=== PATIENT | female | born 2000 | race African-American/Black ===

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

== ENCOUNTER 2018-03-04 11:39 | Emergency (ER) | payer SELFPAY ==
[2018-03-04 11:45] VITALS: BP 121/74
--- NOTE | 2018-03-04 12:21 | ER Document Report ---
HPI - HPI Patient complains to provider of: Right upper back tenderness Onset: Other - 4 days Onset/Duration: Persistent Quality of pain: Achy Pain Level: 3 Context: Patient presents complaining of her right side back discomfort for the past 4 days. Patient denies any fever or sore throat symptoms. Associated Symptoms: denies: Fever, Headache, Sore throat Exacerbated by: Movement Relieved by: Denies Similar symptoms previously: No Recently seen / treated by doctor: No - ROS ROS below otherwise negative: Yes Systems Reviewed and Negative: Yes All other systems reviewed and negative - CONSTITUTIONAL Constitutional: DENIES: Fever, Chills - EENT EENT: DENIES: Sore Throat, Eye problems - NEURO Neurology: DENIES: Headache, Weakness - CARDIOVASCULAR Cardiovascular: DENIES: Chest pain - URINARY Urinary: DENIES: Dysuria, Urgency, Frequency - REPRODUCTIVE Reproductive: DENIES: : - MUSCULOSKELETAL Musculoskeletal: REPORTS: Back Pain. 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 IN LAST 30 DAYS: No - HEENT HEENT: Atraumatic, Normal ENT Exam, Normocephalic - NECK Neck: Normal Inspection, Supple. negative: Lymphadenopathy-Left, Lymphadenopathy-Right Notes: No meningismus - RESPIRATORY Respiratory: Breath Sounds Normal, No Respiratory Distress - CARDIOVASCULAR Cardiovascular: Regular Rate, Regular Rhythm - BACK Back: Abnormal Inspection - Right trapezius muscle tenderness with spasm - MUSCULOSKELETAL/EXTREMETIES Musculoskeletal/Extremeties: RICHA JOSHI - NEURO Level of Consciousness: Awake, Alert, Appropriate Motor/Sensory: No Motor Deficit - DERM Integumentary: Warm, Dry, No Rash Course - Vital Signs Vital signs: Temp Pulse Resp BP Pulse Ox 98.8 F 77 18 121/74 100 03/04/18 11:43 03/04/18 11:43 03/04/18 11:43 03/04/18 11:43 03/04/18 11:43 Discharge - Discharge Clinical Impression: Strain of right trapezius muscle Qualifiers: Encounter type: initial encounter Qualified Code(s): S46.811A - Strain of other muscles, fascia and tendons at shoulder and upper arm level, right arm, initial encounter Condition: Stable Disposition: HOME, SELF-CARE Instructions: Muscle Relaxers ([facility]), Muscle Strain ([facility]), Warm Packs ([facility]) Additional Instructions: Return immediately for any new or worsening symptoms Followup with your primary care provider, call tomorrow to make a followup appointment Prescriptions: Cyclobenzaprine HCl [Flexeril 10 Mg Tablet] 10 mg PO TID #15 tablet Naproxen [Naprosyn 250 Nmg Tablet] 1 tab PO BID #14 tablet Forms: Return to Work Referrals: CAN WEEKS PA-C [Primary Care Provider] - Follow up as needed
== END 2018-03-04 12:28 | disposition home or self-care (01) ==
LOC: ER 11:39
DX: S29.012A Strain of muscle and tendon of back wall of thorax, initial encounter (principal); X58.XXXA Exposure to other specified factors, initial encounter
CPT/HCPCS: 99283

== ENCOUNTER 2018-07-08 11:52 | Emergency (ER) | payer SELFPAY ==
[2018-07-08 12:05] VITALS: BP 124/74
[2018-07-08] MEDS ORDERED: DEXAMETHASONE CONC 1 MG/ML SOLN PO ONE (12:34)
--- NOTE | 2018-07-08 12:35 | ER Document Report ---
ED General - General Chief Complaint: Sore Throat Stated Complaint: THROAT PAIN Time Seen by Provider: 07/08/18 12:19 Notes: Patient is a 17-year-old female that presents to the emergency department for chief complaint of sore throat. Patient states that she has been having sinus congestion and sore throat since this past Sunday, she is been taking over-the- counter medications such as NyQuil with some relief of her pain, but things persisted so she decided come to the ED. She denies any sick contacts. Denies having any fevers, chills, night sweats, chest pain, shortness of breath, difficulty breathing, nausea, vomiting or abdominal pain. Past Medical History: Chronic sinusitis Past Surgical History: Denies surgical history Social History: Denies tobacco, alcohol or illicit drug use. Family History: Reviewed and noncontributory for presenting illness Allergies: Reviewed, see documented allergy list. REVIEW OF SYSTEMS: Other than noted above, the 12 point review of systems was reviewed with the patient and were negative, all pertinent findings are included in the HPI. PHYSICAL EXAMINATION: Vital signs reviewed, nursing noted reviewed. GENERAL: Well-appearing, well-nourished and in no acute distress. HEAD: Atraumatic, normocephalic. EYES: Eyes appear normal, extraocular movements intact, sclera anicteric, conjunctiva are normal. ENT: nares patent, oropharynx clear without exudates. Moist mucous membranes. mild bilateral nasal turbinate injection, TMs appear normal bilaterally. NECK: Normal range of motion, supple without lymphadenopathy LUNGS: Breath sounds clear to auscultation bilaterally and equal. No wheezes rales or rhonchi. HEART: Regular rate and rhythm without murmurs ABDOMEN: Soft, nontender, normoactive bowel sounds. No rebound, guarding, or rigidity. No masses appreciated. EXTREMITIES: Nontender, good range of motion, no pitting or edema. NEUROLOGICAL: No focal neurological deficits. Moves all extremities spontaneously Motor and sensory grossly intact on exam. PSYCH: Normal mood, normal affect. SKIN: Warm, Dry, normal turgor, no rashes or lesions noted on exposed skin TRAVEL OUTSIDE OF THE [place] IN LAST 30 DAYS: No - Related Data Allergies/Adverse Reactions: No Known Allergies Allergy (Verified 07/08/18 11:52) Past Medical History - Social History Smoking Status: Never Smoker Chew tobacco use (# tins/day): No Frequency of alcohol use: None Drug Abuse: None Family History: None Patient has suicidal ideation: No Patient has homicidal ideation: No Renal/ Medical History: Denies: Hx Peritoneal Dialysis - Immunizations Immunizations up to date: Yes Physical Exam - Vital signs Vitals: Temp Pulse Resp BP Pulse Ox 98.3 F 83 14 124/74 100 07/08/18 12:05 07/08/18 12:05 07/08/18 12:05 07/08/18 12:05 07/08/18 12:05 Course - Re-evaluation Re-evalutation: Patient seen and examined vital signs reviewed. Patient was evaluated and treated as appropriate for the patient's presenting symptoms and complaint, with consideration of any critical or life threatening conditions that may be associated with their obtained history and exam as noted above. Patient was treated with Decadron 10 mg p.o., rapid strep antigen testing was negative, sent for culture The patient was re-evaluated and was stable Evaluation was most consistent with acute pharyngitis Plan of care was discussed with the patient at this point, after careful consideration I feel that that patient can be discharged from the emergency department, the patient was educated treatments and reasons to return to the emergency department based on their presumed diagnosis as noted above, they were advised to followup with a primary care physician in 2-3 days. Patient was agreeable to plan of care. *Note is created using voice recognition software and may contain spelling, syntax or grammatical errors. Laboratory 07/08/18 12:25 Group A Strep Rapid NEGATIVE - Vital Signs Vital signs: Temp Pulse Resp BP Pulse Ox 98.3 F 83 14 124/74 100 07/08/18 12:05 07/08/18 12:05 07/08/18 12:05 07/08/18 12:05 07/08/18 12:05 Discharge - Discharge Clinical Impression: Acute pharyngitis Qualifiers: Pharyngitis/tonsillitis etiology: unspecified etiology Qualified Code(s): J02.9 - Acute pharyngitis, unspecified Condition: Stable Disposition: HOME, SELF-CARE Instructions: Sore Throat ([facility]) Additional Instructions: Please return to the emergency department if you have any worsening, or concern of your symptoms. Please return to the emergency department if you develop chest pain, difficulty breathing, severe abdominal pain, or ongoing vomiting. Please follow-up with your primary care physician in 2-3 days and any other recommended physicians. If prescribed, take all medications as directed. If you have any questions or concerns do not hesitate to return the emergency department for evaluation. Forms: Return to Work Referrals: CAN WEEKS PA-C [Primary Care Provider] - Follow up in 3-5 days
== END 2018-07-08 13:22 | disposition home or self-care (01) ==
LOC: ER 11:52
DX: J02.9 Acute pharyngitis, unspecified (principal); R09.81 Nasal congestion
CPT/HCPCS: 99283; 87070; 87880; J8540

== ENCOUNTER 2018-07-26 20:11 | Emergency (ER) | payer SELFPAY ==
[2018-07-27] MEDS ORDERED: ONDANSETRON 4 MG TAB.RAPDIS PO ONE (00:08)
[2018-07-27] MEDS ORDERED: IBUPROFEN 600 MG TABLET PO ONE (00:08)
[2018-07-27] MEDS ORDERED: ACETAMINOPHEN 325 MG TABLET PO ONE (00:08)
[2018-07-27 00:52] LABS: A TYPE INFLUENZA AG NEGATIVE (NEGATIVE); B INFLUENZA AG NEGATIVE (NEGATIVE)
--- NOTE | 2018-07-27 01:29 | ER Document Report ---
ED General - General Chief Complaint: Cold Symptoms Stated Complaint: HEADACHE,FEVER Time Seen by Provider: 07/27/18 00:07 Notes: Patient is a 17-year-old female with a past medical history of migraine headaches, presents complaining of a right-sided headache that has been ongoing for the past 24 hours as well as 3 days of nasal congestion, sore throat, nonproductive cough and body aches. Describes a right-sided headache as being a throbbing, aching, constant headache similar to when she has had migraines in the past. She states that she ran out of her migraine medicine so has been unable to take anything since onset. Notes associated nausea and vomiting. She has not had fever. No neck pain. No confusion. Multiple sick contacts with similar symptoms. She has not seen her doctor regarding today's concerns. Denies any focal weakness or numbness. Nothing improves or worsens her symptoms. TRAVEL OUTSIDE OF THE [place] IN LAST 30 DAYS: No - Related Data Allergies/Adverse Reactions: No Known Allergies Allergy (Verified 07/08/18 11:52) Past Medical History - General Information source: Patient - Social History Smoking Status: Never Smoker Chew tobacco use (# tins/day): No Frequency of alcohol use: None Drug Abuse: None Lives with: Parents Family History: Reviewed & Not Pertinent Patient has suicidal ideation: No Patient has homicidal ideation: No Renal/ Medical History: Denies: Hx Peritoneal Dialysis - Immunizations Immunizations up to date: Yes Review of Systems - Review of Systems Notes: Constitutional: Negative for fever. HENT: Positive for sore throat. Eyes: Negative for visual changes. Cardiovascular: Negative for chest pain. Respiratory: Negative for shortness of breath. Gastrointestinal: Negative for abdominal pain, positive for nausea and vomiting Genitourinary: Negative for dysuria. Musculoskeletal: Negative for back pain. Skin: Negative for rash. Neurological: Positive headache 10 point ROS negative except as marked above and in HPI. Physical Exam - Vital signs Vitals: Temp Pulse BP Pulse Ox 98.9 F 111 H 131/77 H 99 07/26/18 20:53 07/26/18 20:53 07/26/18 20:53 07/26/18 20:53 Interpretation: Tachycardic Notes: PHYSICAL EXAMINATION: GENERAL: Well-appearing, well-nourished and in no acute distress. HEAD: Atraumatic, normocephalic. EYES: Pupils equal round and reactive to light, extraocular movements intact, sclera anicteric, conjunctiva are normal. ENT: nares patent, oropharynx clear without exudates. Moist mucous membranes. NECK: Normal range of motion, supple without lymphadenopathy LUNGS: Breath sounds clear to auscultation bilaterally and equal. No wheezes rales or rhonchi. HEART: Regular rate and rhythm without murmurs ABDOMEN: Soft, nontender, normoactive bowel sounds. No guarding, no rebound. No masses appreciated. EXTREMITIES: Normal range of motion, no pitting or edema. No cyanosis. NEUROLOGICAL: Face symmetric. Tongue protrudes midline. Extraocular motions intact. Pupils are 2 mm and equally reactive. Normal speech, normal gait. 5 out of 5 strength in both the distal and proximal upper and lower extremities bilaterally. Sensation is grossly intact throughout. Finger to nose testing normal. Pronator drift normal. PSYCH: Normal mood, normal affect. SKIN: Warm, Dry, normal turgor, no rashes or lesions noted. Course - Re-evaluation Re-evalutation: 07/27/18 01:27 Presentation is most consistent with a viral upper respiratory infection. Patient is overall well appearance, vitals within normal limits, well-hydrated. Although patient does complain of a mild sinus type headache overlying the right maxillary sinus and forehead, she states that this is quite typical for headaches that she has had in the past and has had resolution after receiving ibuprofen and Tylenol p.o. She denies neck pain, and has no evidence of meningismus on examination. Lungs are clear bilaterally. No evidence of respiratory distress. Based on clinical exam and history, I do not suspect an acute pneumonia, meningitis, strep pharyngitis, or an acute encephalitis. Strep and flu testing are both negative. No further laboratory or imaging testing is indicated at this time. I have also refilled some of patient's chronic home medication for her and follow request. At this time will discharge with return precautions and follow-up recommendations. Verbal discharge instructions given a the bedside and opportunity for questions given. Medication warnings reviewed. Patient is in agreement with this plan and has verbalized understanding of return precautions and the need for primary care follow-up in the next 24-72 hours. - Vital Signs Vital signs: Temp Pulse Resp BP Pulse Ox 99.1 F 92 H 16 125/69 99 07/27/18 01:46 07/27/18 01:46 07/27/18 01:46 07/27/18 01:46 07/27/18 01:46 Discharge - Discharge Clinical Impression: Viral upper respiratory infection Headache Qualifiers: Headache type: tension-type Headache chronicity pattern: acute headache Intractability: not intractable Qualified Code(s): G44.209 - Tension-type headache, unspecified, not intractable Condition: Good Disposition: HOME, SELF-CARE Additional Instructions: Your symptoms are most likely due to a viral infection it should resolve over the next 7-14 days. You should take [id number] guanfacine per bottle instructions to help thin the mucus. For nasal congestion: I would recommend that you get [id number] oxymetazoline also known is afrin. Use only per bottle instructions and be sure to never use this for more than 3 days if you can develop severe rebound congestion. You may also use tylenol or ibuprofen as needed for aches and thorat discomfort. Please be sure to drink plenty of fluids and get rest. Return to the emergency department he began having difficulty breathing, chest pain, persistent vomiting, or any other symptoms that are concerning to you. You have been seen in the Emergency Department (ED) for a headache. Please use Tylenol (acetaminophen) or Motrin (ibuprofen) as needed for symptoms, but only as written on the box. As we have discussed, please follow up with your primary care doctor as soon as possible regarding today's ED visit and your headache symptoms. Call your doctor or return to the ED if you have a worsening headache, sudden and severe headache, confusion, slurred speech, facial droop, weakness or numbness in any arm or leg, extreme fatigue, or other symptoms that concern you. Prescriptions: Naproxen 500 mg PO BID PRN #30 tablet PRN Reason: Nortriptyline HCl [Pamelor] 25 mg PO DAILY PRN #30 capsule PRN Reason: Referrals: CAN WEEKS PA-C [Primary Care Provider] - Follow up as needed
[2018-07-27 01:50] VITALS: BP 125/69
== END 2018-07-27 01:51 | disposition home or self-care (01) ==
LOC: ER 20:11
DX: G44.209 Tension-type headache, unspecified, not intractable (principal); J06.9 Acute upper respiratory infection, unspecified; B97.89 Other viral agents as the cause of diseases classified elsewhere; J02.9 Acute pharyngitis, unspecified; R09.81 Nasal congestion; R05 Cough; R11.2 Nausea with vomiting, unspecified
CPT/HCPCS: 87070; 87804; 87880; 99283

== ENCOUNTER 2018-10-28 10:53 | Emergency (ER) | payer SELFPAY ==
[2018-10-28 11:14] VITALS: BP 127/57
--- NOTE | 2018-10-28 12:48 | ER Document Report ---
ED Extremity Problem, Upper - General Chief Complaint: Arm Pain Stated Complaint: ARM PAIN Time Seen by Provider: 10/28/18 12:35 Primary Care Provider: [facility] [Provider Group] - Follow up as needed CAN WEEKS PA-C [Primary Care Provider] - Follow up in 3-5 days Mode of Arrival: Ambulatory Information source: Patient Notes: 18-year-old female presented to ED for complaint of right I am pain since Sunday. She states she was roughhousing and had some sharp popping sounds in her shoulders. She complains of numbness and tingling to her right arm at the time. She states she did not fall and she has been using her arm since then. Patient is alert oriented respirations regular and unlabored speaking in full sentences sentences. She states she has some muscle relaxers and ibuprofen at home and she has been using those with no relief. Patient states she is unemployed at this time. TRAVEL OUTSIDE OF THE [place] IN LAST 30 DAYS: No - HPI Patient complains to provider of: Right, Arm, Elbow, Shoulder Onset: Other Recent injury: Possibly - ID Where: Home Quality of pain: Sharp Severity of pain: Severe Pain Level: 5 Associated symptoms: None Exacerbated by: Movement Similar symptoms previously: Yes Recently seen / treated by doctor: No - Related Data Allergies/Adverse Reactions: No Known Allergies Allergy (Verified 10/28/18 11:06) Past Medical History - General Information source: Patient - Social History Smoking Status: Never Smoker Chew tobacco use (# tins/day): No Frequency of alcohol use: None Drug Abuse: None Lives with: Friend Family History: Reviewed & Not Pertinent Patient has suicidal ideation: No Patient has homicidal ideation: No - Past Medical History Cardiac Medical History: Reports: None Pulmonary Medical History: Reports: None EENT Medical History: Reports: None Neurological Medical History: Reports: None Endocrine Medical History: Reports: None Renal/ Medical History: Reports: None Malignancy Medical History: Reports: None GI Medical History: Reports: None Musculoskeletal Medical History: Reports None Skin Medical History: Reports None Psychiatric Medical History: Reports: None Traumatic Medical History: Reports: None Infectious Medical History: Reports: None Surgical Hx: Negative Past Surgical History: Reports: None - Immunizations Immunizations up to date: Yes Review of Systems - Review of Systems Constitutional: No symptoms reported EENT: No symptoms reported Cardiovascular: No symptoms reported Respiratory: No symptoms reported Gastrointestinal: No symptoms reported Genitourinary: No symptoms reported Female Genitourinary: No symptoms reported Musculoskeletal: Other - Right arm pain she states from shoulder to elbow with numbness and tingling down the hand Skin: No symptoms reported Hematologic/Lymphatic: No symptoms reported Neurological/Psychological: Numbness, Tingling -: Yes All other systems reviewed and negative Physical Exam - Vital signs Vitals: Temp Pulse Resp BP Pulse Ox 98.4 F 82 16 127/57 H 100 10/28/18 11:11 10/28/18 11:11 10/28/18 11:11 10/28/18 11:11 10/28/18 11:11 Interpretation: Normal - General General appearance: Appears well, Alert - HEENT Head: Normocephalic, Atraumatic Eyes: Normal Pupils: PERRL - Respiratory Respiratory status: No respiratory distress Chest status: Nontender Breath sounds: Normal Chest palpation: Normal - Cardiovascular Rhythm: Regular Heart sounds: Normal auscultation Murmur: No - Abdominal Inspection: Normal Distension: No distension Bowel sounds: Normal Tenderness: Nontender Organomegaly: No organomegaly - Back Back: Normal, Nontender - Extremities General upper extremity: Normal inspection, Nontender, Normal color, Normal ROM, Normal temperature General lower extremity: Normal inspection, Nontender, Normal color, Normal ROM, Normal temperature, Normal weight bearing. No: Karan's sign Shoulder: Tender, Other - Patient has pain with range of motion against resistance. Strength5/5,. No: Abrasion, Deformity, Dislocation, Ecchymosis, Instability, Laceration, Limited ROM Arm: Tender. No: Abrasion, Deformity, Ecchymosis, Instability, Laceration Elbow: Tender, Other - Strength5/5, full range of motion against resistance. No: Abrasion, Deformity, Dislocation, Ecchymosis, Instability, Joint effusion, Laceration, Limited ROM, Swollen bursa Forearm: Normal, Nontender. No: Tender, Abrasion, Deformity, Ecchymosis, I nstability, Laceration Wrist: Normal, Nontender, Other - Full range of motion no limited. No: Abrasion, Axial load of thumb pain, Deformity, Ecchymosis, Instability, Lacerati on, Limited ROM, Navicular tenderness Hand: Normal, Nontender, No evidence of human bite, No evidence of FB. No: Tender, Abrasion, Deformity, Dislocation, Ecchymosis, Instability, Laceration, Nail injury, Swelling - Neurological Neuro grossly intact: Yes Cognition: Normal Orientation: AAOx4 Martha Coma Scale Eye Opening: Spontaneous [place]den Coma Scale Verbal: Oriented Martha Coma Scale Motor: Obeys Commands Lowden Coma Scale Total: 15 Speech: Normal Motor strength normal: LUE, RUE, LLE, RLE Sensory: Normal - Psychological Associated symptoms: Normal affect, Normal mood - Skin Skin Temperature: Warm Skin Moisture: Dry Skin Color: Normal Course - Re-evaluation Re-evalutation: 10/28/18 13:32 Patient has full range of motion against resistance to the shoulder and elbow. She has no point tenderness but states that her shoulder arm and elbow all hurt. She states she has numbness and tingling but is able to differentiate soft touch and pinpoint to the entire arm. She has a 5/5 strength to the shoulder elbow and wrist. I did not see any reason for x-rays at this time. I have informed her she needs to follow-up with orthopedics. - Vital Signs Vital signs: Temp Pulse Resp BP Pulse Ox 98.4 F 82 16 127/57 H 100 10/28/18 11:11 10/28/18 11:11 10/28/18 11:11 10/28/18 11:11 10/28/18 11:11 Discharge - Discharge Clinical Impression: Arm pain Qualifiers: Laterality: right Qualified Code(s): M79.601 - Pain in right arm Condition: Stable Disposition: HOME, SELF-CARE Additional Instructions: Arm Pain, Nonspecific We did not find an obvious cause for your arm pain. There's no sign of blood clot, infection, heart attack, stroke, or other serious disease. Most of the time, this type of pain goes away. If it does, no further evaluation is necessary. If pain continues or keeps coming back, we can do further testing. Possible causes of vague arm pain include muscle or joint inflammation, disc disease in the neck, pressure on the nerves and artery in the chest or armpit ("thoracic outlet syndrome"), or heart disease. Rest the arm. Pain can be eased with an antiinflammatory pain medicine such as ibuprofen. If the pain involves a small area, a heating pad might help. Call the doctor or return if the arm becomes swollen, weak, discolored, or increasingly painful, or if you develop any other significant change in your health. Acetaminophen Acetaminophen may be taken for pain relief or fever control. It's much safer than aspirin, offering a wider range of "safe" dosages. It is safe during . Some brand names are Tylenol, Panadol, Datril, Anacin 3, Tempra, and Liquiprin. Acetaminophen can be repeated every four hours. The following are maximum recommended dosages: WEIGHT Dose Drops Elixir Chewable(80mg) (LBS.) drprs=droppers tsp=teaspoon 6 40 mg .4 ml (1/2) 6-11 80 mg .8 ml (full) 1/2 tsp 1 tab 12-16 120 mg 1 1/2 drprs 3/4 tsp 1 1/2 tabs 17-23 160 mg 2 drprs 1 tsp 2 tabs 24-30 240 mg 3 drprs 1 1/2 tsp 3 tabs 30-35 320 mg 2 tsp 4 tabs 36-41 360 mg 2 1/4 tsp 4 1/2 tabs 42-47 400 mg 2 1/2 tsp 5 tabs 48-53 480 mg 3 tsp 6 tabs 54-59 520 mg 3 1/4 tsp 6 1/2 tabs 60-64 560 mg 3 1/2 tsp 7 tabs 65-70 600 mg 3 3/4 tsp 7 1/2 tabs 71-76 640 mg 4 tsp 8 tabs 77-82 720 mg 4 1/2 tsp 9 tabs 83-88 800 mg 5 tsp 10 tabs >89 pounds or adults 650 mg to 900 mg Acetaminophen can be repeated every four hours. Maximum daily dose not to exceed 4000 mg. These maximum recommended dosages are slightly higher than the dosages w ritten on the product container, but these dosages are very safe and well below the toxic dosage for acetaminophen. Ibuprofen Ibuprofen is an excellent, safe drug for pain control. In addition, it has potent antiinflammatory effects which are beneficial, especially in the treatment of injuries, arthritis, or tendonitis. It's best to take ibuprofen with food. Persons with ulcer disease or allergy to aspirin should notify their physician of this before taking ibuprofen. Take the medication exactly as prescribed. Don't take additional doses unless instructed to do so by your doctor. If you develop wheezing, shortness of breath, hives, faintness, stomach pain, vomiting, or dark black stools, return for re-evaluation at once. Ice & Elevation Apply ice packs frequently against the painful area. Many different schedules are recommended, such as "20 minutes on, 20 minutes off" or "one hour ice, two hours rest." If you need to work, you may need to go longer between ice treatments. You should plan to have the area ice packed AT LEAST one-fourth of the time. The ice should be applied over the wrap, tape, or splint, or over a layer of cloth -- not directly against the skin. Some ice bags have a built-in cloth and can be put directly on the skin. Your injured part should be elevated as much as possible over the next 48 hours. Try to keep the injury above the level of the heart. Avoid use of the injured area. Elevation and rest will decrease the swelling. Exercise Program for the Shoulder Since the shoulder moves in so many directions, the joint attachment is weak. Muscles provide most of the stability to the shoulder. You must exercise your shoulder to prevent painful instability or stiffening. PASSIVE - These may be begun within a few days of the injury. While standing, lean forward, allowing the arm to hang down towards the floor. Move the arm in small circles while slowly twisting your chest towards and away from the hanging arm. Do this for one minute. ACTIVE - These may be performed when the doctor gives permission. Begin with the arms at the sides. Raise the arms forward (shoulder's width apart) until they reach shoulder level. Then slowly swing both arms back until they are aiming straight out away from each other. Then bring them forward again, and finally, lower them to your sides. Repeat 20 to 30 times. As you improve, put weights in your hands for the exercise. Start with one pound, and work up to 10 pounds. Never use more than is comfortable. Athletes may work up to 30 pounds. FOLLOW-UP CARE: If you have been referred to a physician for follow-up care, call the physicians office for an appointment as you were instructed or within the next two days. If you experience worsening or a significant change in your symptoms, notify the physician immediately or return to the Emergency Department at any time for re-evaluation. Prescriptions: Ibuprofen [Motrin 800 mg Tablet] 800 mg PO Q8H PRN #30 tab PRN Reason: Referrals: CAN WEEKS PA-C [Primary Care Provider] - Follow up in 3-5 days [facility] [Provider Group] - Follow up as needed
== END 2018-10-28 12:50 | disposition home or self-care (01) ==
LOC: ER 10:53
DX: M79.621 Pain in right upper arm (principal); M25.511 Pain in right shoulder; M25.521 Pain in right elbow; R20.0 Anesthesia of skin; R20.2 Paresthesia of skin
CPT/HCPCS: 99283

== ENCOUNTER 2019-03-08 00:06 | Emergency (ER) | payer SELFPAY ==
[2019-03-08 00:35] VITALS: BP 120/74
== END 2019-03-08 05:13 | disposition left against medical advice (07) ==
LOC: ER 00:06
DX: Z53.21 Procedure and treatment not carried out due to patient leaving prior to being seen by health care provider (principal)

== ENCOUNTER 2019-03-08 10:08 | Emergency (ER) | payer SELFPAY ==
--- NOTE | 2019-03-08 10:38 | ER Document Report ---
ED Medical Screen (RME) - General Chief Complaint: Headache Stated Complaint: NUMBNESS Time Seen by Provider: 03/08/19 10:29 Primary Care Provider: CAN WEEKS PA-C [Primary Care Provider] - Follow up as needed Mode of Arrival: Ambulatory Information source: Patient Notes: Patient is an otherwise healthy 18-year-old female presented to the emergency department with multiple vague complaints today. Patient reports she has not had a normal bowel movement in at least 1 week. She reports she is passing only small pebbly stool. She also reports intermittent headaches with dizziness and nausea. She currently denies any dizziness or nausea but reports all over body "tingling". She denies any unilateral weakness. Exam: Heart sounds S1-S2 present with no ectopy noted. Lung sounds clear and equal bilaterally. Patient answering all questions appropriately and is in no acute distress. I have greeted and performed a rapid initial assessment of this patient. A comprehensive ED assessment and evaluation of the patient, analysis of test results and completion of the medical decision making process will be conducted by additional ED providers. I have specifically instructed the patient or family members with the patient to immediately return to any nursing staff should anything change in the patient's condition or with their chief complaint. This medical record was dictated with voice recognizing software. There may be grammatical, syntax errors that are unintended. TRAVEL OUTSIDE OF THE [place] IN LAST 30 DAYS: No - Related Data Allergies/Adverse Reactions: No Known Allergies Allergy (Verified 03/08/19 10:09) Past Medical History - Social History Frequency of alcohol use: None Drug Abuse: None Neurological Medical History: Reports: Hx Migraine Renal/ Medical History: Denies: Hx Peritoneal Dialysis - Immunizations Immunizations up to date: Yes Physical Exam - Vital signs Vitals: Temp Pulse Resp BP Pulse Ox 98.5 F 79 14 117/71 100 03/08/19 10:11 03/08/19 10:11 03/08/19 10:11 03/08/19 10:11 03/08/19 10:11 Course - Vital Signs Vital signs: Temp Pulse Resp BP Pulse Ox 98.5 F 79 14 117/71 100 03/08/19 10:11 03/08/19 10:11 03/08/19 10:11 03/08/19 10:11 03/08/19 10:11 Doctor's Discharge - Discharge Referrals: CAN WEEKS PA-C [Primary Care Provider] - Follow up as needed
[2019-03-08 11:13] LABS: ABSOLUTE BASOPHILS # (AUTO) 0.1 10^3/uL (0.0-0.2); ABSOLUTE EOSINOPHILS # (AUTO) 0.1 10^3/uL (0.0-0.6); ABSOLUTE LYMPHOCYTES (AUTO) 2.4 10^3/uL (0.5-4.7); ABSOLUTE MONOCYTES (AUTO) 0.7 10^3/uL (0.1-1.4); ABSOLUTE NEUT (AUTO) 5.5 10^3/uL (1.7-8.2); BASOPHILS % (AUTO) 0.7 % (0-2); EOSINOPHILS % (AUTO) 1.3 % (0-6); HEMATOCRIT 41.9 % (36.0-47.0); HEMOGLOBIN 14.2 g/dL (12.0-15.5); LYMPHOCYTES % (AUTO) 27.5 % (13-45); MEAN CORPUSCULAR HEMOGLOBIN 29.1 pg (27.0-33.4); MEAN CORPUSCULAR HGB CONC 33.9 g/dL (32.0-36.0); MEAN CORPUSCULAR VOLUME 86 fl (80-97); MONOCYTES % (AUTO) 7.8 % (3-13); PLATELET COUNT 347 10^3/uL (150-450); RED BLOOD COUNT 4.88 10^6/uL (3.72-5.28); RED CELL DISTRIBUTION WIDTH 14.1 % (11.5-14.0); SEGMENTED NEUTROPHILS % (AUTO) 62.7 % (42-78); TOTAL CELLS COUNTED % (AUTO) 100 %; WHITE BLOOD COUNT 8.8 10^3/uL (4.0-10.5)
[2019-03-08 11:29] LABS: APPEARANCE,URINE CLEAR; BILIRUBIN,URINE NEGATIVE (NEGATIVE); COLOR,URINE YELLOW; GLUCOSE, URINE NEGATIVE (NEGATIVE); KETONES,URINE NEGATIVE (NEGATIVE); LEUKOCYTE ESTERASE,URINE TRACE (NEGATIVE); NITRITE,URINE NEGATIVE (NEGATIVE); PROTEIN,URINE NEGATIVE (NEGATIVE); URINE SPECIFIC GRAVITY 1.021
[2019-03-08 11:33] LABS: ALBUMIN 4.1 g/dL (3.5-5.0); ALKALINE PHOSPHATASE 83 U/L (38-126); ANION GAP 10 (5-19); ASPARTATE AMINO TRANSFERASE 27 U/L (14-36); BILIRUBIN,DIRECT 0.1 mg/dL (0.0-0.4); BILIRUBIN,TOTAL 0.8 mg/dL (0.2-1.3); BLOOD UREA NITROGEN 15 mg/dL (7-20); CALCIUM 9.7 mg/dL (8.4-10.2); CARBON DIOXIDE 27 mmol/L (22-30); CHLORIDE 100 mmol/L (98-107); GLUCOSE 92 mg/dL (75-110); POTASSIUM 4.2 mmol/L (3.6-5.0); TOTAL PROTEIN 7.4 g/dL (6.3-8.2)
--- NOTE | 2019-03-08 11:40 | ER Document Report ---
ED General - General Chief Complaint: Headache Stated Complaint: NUMBNESS Time Seen by Provider: 03/08/19 10:29 Primary Care Provider: CAN WEEKS PA-C [NO LOCAL MD] - Follow up as needed Mode of Arrival: Ambulatory TRAVEL OUTSIDE OF THE [place] IN LAST 30 DAYS: No - HPI Notes: Patient is a 18-year-old female with history of migraines who presents compl aining of bilateral burning and tingling sensation to her extremities that is been present for the past 5 days is been relatively constant. Patient is not aware of anything that worsens or improves her symptoms. Patient states on occasion she will have a mild headache, but no headache currently. She will also have occasional nausea and dizziness which is not currently present. She is able to eat and drink without difficulty. She is urinating normally. Denies drug allergies. Patient states that she has been constipated and is still passing stool, but has not had a really good bowel movement in about a week. She otherwise has not had any vaginal discharge, odor, or bleeding. Last mental period was 1 week ago. No other concerns or complaints. She has not noticed any muscle weakness. Denies any headache, fever, head injury, neck pain, changes in vision/speech/mentation/hearing, URI, sore throat, chest pain, palpitations, syncope, cough, shortness of breath, wheeze, dyspnea, abdominal pain, nausea/vomiting/diarrhea, urinary retention, dysuria, hematuria, loss of control of bowel or bladder, saddle anesthesia, muscle paralysis, or rash. No tick bite. - Related Data Allergies/Adverse Reactions: No Known Allergies Allergy (Verified 03/08/19 10:09) Past Medical History - General Information source: Patient - Social History Smoking Status: Never Smoker Frequency of alcohol use: None Drug Abuse: None Family History: Reviewed & Not Pertinent Patient has suicidal ideation: No Patient has homicidal ideation: No Neurological Medical History: Reports: Hx Migraine Renal/ Medical History: Denies: Hx Peritoneal Dialysis - Immunizations Immunizations up to date: Yes Review of Systems - Review of Systems -: Yes All other systems reviewed and negative Physical Exam - Vital signs Vitals: Temp Pulse Resp BP Pulse Ox 98.5 F 79 14 117/71 100 03/08/19 10:11 03/08/19 10:11 03/08/19 10:11 03/08/19 10:11 03/08/19 10:11 - Notes Notes: PHYSICAL EXAMINATION: GENERAL: Well-appearing, well-nourished and in no acute distress. A&Ox4. Answers questions appropriately. HEAD: Atraumatic, normocephalic. Non-tender. EYES: Pupils equal round and reactive to light, extraocular movements intact, sclera anicteric, conjunctiva are normal. No nystagmus. ENT: EAC clear b/l. TM's intact b/l without erythema, fluid, or perforation. Nares patent and without discharge. oropharynx clear without exudates. No tonsilar hypertrophy or erythema. Moist mucous membranes. No sinus tenderness. NECK: Normal range of motion, supple without lymphadenopathy. No rigidity/meningismus. No midline tenderness. LUNGS: Breath sounds clear to auscultation bilaterally and equal. No wheezes rales or rhonchi. HEART: Regular rate and rhythm without murmurs, rubs, gallops. ABDOMEN: Soft, nontender, nondistended abdomen. No guarding, no rebound. Normal bowel sounds present. No CVA tenderness bilaterally. Musculoskeletal: Ext b/l: FROM to passive/active. Strength 5+/5. No deficits noted. No bony tenderness of extremities. Extremities: No cyanosis, clubbing, or edema b/l. Peripheral pulses 2+. Capillary refill less than 2 seconds. NEUROLOGICAL: NIH 0. GCS 15. Cranial nerves grossly intact. Normal speech, normal gait. Normal sensory, motor exams. Reflexes 2+ b/l. TRENTON's negative. Pronator drift negative. Heel/christopher, finger/nose wnl. PSYCH: Normal mood, normal affect. SKIN: Warm, Dry, normal turgor, no rashes or lesions noted. Course - Re-evaluation Re-evalutation: 03/08/19 11:[address] Dangleo. We will obtain a head MRI. If unremarkable discharge for f/u with Neuro. 03/08/19 13:01 Patient is an afebrile, well-hydrated, 18-year-old female who presents to the ED with bilateral tingling, unspecified, to extremities. Vitals are acceptable without any significant tachycardia, tachypnea, or hypoxia. PE is otherwise unremarkable for any focal neurological deficits. NIH 0, GCS 15, cranial nerves grossly intact. Labs and MRI unremarkable. No other labs or imaging warranted at this time based on H&P. She is nontoxic-appearing and is tolerating p.o. without any difficulties. Low suspicion for any acute glaucoma, temporal arteritis, meningitis, intracranial hemorrhage, ischemic stroke, lyme, damián mountain spotted fever, suresh-barre, MS, or fracture at this time. Patient is aware that this condition can change from initial presentation and that she needs to monitor symptoms closely for any acute changes. Recheck with your PCM/neurologist in 3-5 days. Return to the ED with any worsening/concerning symptoms otherwise as reviewed in discharge. Patient is in agreement. - Vital Signs Vital signs: Temp Pulse Resp BP Pulse Ox 98.5 F 79 14 117/71 100 03/08/19 10:11 03/08/19 10:11 03/08/19 10:11 03/08/19 10:11 03/08/19 10:11 - Laboratory Result Diagrams: 03/08/19 11:00 03/08/19 11:00 Laboratory results interpreted by me: 03/08/19 03/08/19 11:00 11:11 RDW 14.1 H Urine Urobilinogen 4.0 H Ur Leukocyte Esterase TRACE H Discharge - Discharge Clinical Impression: Tingling of both upper extremities, Tingling of both feet Condition: Stable Disposition: HOME, SELF-CARE Additional Instructions: As reviewed, your comprehensive lab work as well as an MRI of your brain were unremarkable at this time. It is important that you have follow-up with a family provider as well as neurology. Rest, Ice Tylenol/ibuprofen as needed Light stretches daily Strength exercises as able Moist heat and massage may help F/u with your PCP in 3-5 days for a recheck Schedule consult neurology for further evaluation and management Return to the ED with any worsening symptoms and/or development of fever, h eadache, changes in behavior/mentation/vision/speech, chest pain, palpitations, syncope, shortness of breath, trouble breathing, abdominal pain, n/v/d, blood in stool/urine, loss of control of bowel/bladder, urinary retention, muscle weakness/paralysis, saddle anesthesia, numbness, or other worsening symptoms that are concerning to you. Referrals: CAN WEEKS PA-C [NO LOCAL MD] - Follow up as needed SANDY FOX MD [NO LOCAL MD] - Follow up in 3-5 days
--- NOTE | 2019-03-08 11:42 | RADIOLOGY REPORT (SQ) ---
EXAM DESCRIPTION: KUB/ABDOMEN (SINGLE VIEW) COMPLETED DATE/TIME: 03/08/2019 11:04 am REASON FOR STUDY: eval for constipation COMPARISON: None. NUMBER OF VIEWS: One view. TECHNIQUE: Supine radiographic image of the abdomen acquired. LIMITATIONS: None. FINDINGS: BOWEL GAS PATTERN: Normal bowel gas pattern. No dilated loops. CONSTIPATION: mild CALCIFICATIONS: No suspicious calcifications. SOFT TISSUES: No gross mass or suggestion of organomegaly. HARDWARE: None in the abdomen. BONES: No acute fracture. No worrisome bone lesions. OTHER: No other significant finding. IMPRESSION: NO RADIOGRAPHIC EVIDENCE FOR ACUTE ABDOMINAL DISEASE. Mild constipation. TECHNICAL DOCUMENTATION: JOB ID: [id number] [place]-72 2010 [employer]- All Rights Reserved Reading location - IP/workstation name: [email or web address]
[2019-03-08 12:06] LABS: URINE AMPHETAMINES SCREEN NEGATIVE; URINE BARBITURATES SCREEN NEGATIVE; URINE BENZODIAZEPINES SCREEN NEGATIVE; URINE COCAINE SCREEN NEGATIVE; URINE MARIJUANA (THC) SCREEN NEGATIVE; URINE METHADONE SCREEN NEGATIVE; URINE PHENCYCLIDINE SCREEN NEGATIVE
--- NOTE | 2019-03-08 12:55 | RADIOLOGY REPORT (SQ) ---
EXAM DESCRIPTION: MRI HEAD WITHOUT COMPLETED DATE/TIME: 03/08/2019 12:37 pm REASON FOR STUDY: bilateral tingling/burning to extremities COMPARISON: None. TECHNIQUE: Multiplanar imaging includes non-contrasted T1, T2, FLAIR, and diffusion with ADC map seq uences. Images stored on PACS. LIMITATIONS: None. FINDINGS: ANATOMY: No anomalies. Normal vascular flow voids. Pituitary fossa normal. CSF SPACES: Normal in size and contour. No hemorrhage. CEREBRUM: Sulci and gyri normal in size and contour. Normal white matter signal on FLAIR imaging. No evidence of hemorrhage, mass, or extraaxial fluid collection. POSTERIOR FOSSA: No signal alteration. No hemorrhage. No edema, masses or mass effect. Internal theodora tory canals, cerebello-pontine angles, mastoids normal. DIFFUSION IMAGING: Negative for acute or sub-acute infarction. ORBITS: No masses. Globes normal. PARANASAL SINUSES: No fluid levels. Mucosa normal. OTHER: No other significant finding. IMPRESSION: NORMAL MRI OF THE BRAIN WITHOUT INTRAVENOUS GADOLINIUM CONTRAST. EVIDENCE OF ACUTE STROKE: NO. TECHNICAL DOCUMENTATION: JOB ID: [id number]- All Rights Reserved Reading location - IP/workstation name: [email or web address]
[2019-03-08 13:18] VITALS: BP 119/72
== END 2019-03-08 13:19 | disposition home or self-care (01) ==
LOC: ER 10:08
DX: R20.2 Paresthesia of skin (principal); R20.8 Other disturbances of skin sensation; R51 Headache; K59.00 Constipation, unspecified; R11.0 Nausea; R42 Dizziness and giddiness; Z86.69 Personal history of other diseases of the nervous system and sense organs
CPT/HCPCS: 36415; 70551; 74018; 80053; 80307; 81001; 81025; 84443; 85025; 99284

== ENCOUNTER 2019-08-19 12:42 | Emergency (ER) | payer SELFPAY ==
[2019-08-19] MEDS ORDERED: DIPHENHYDRAMINE HCL 50 MG CAPSULE PO ONE (14:32)
[2019-08-19] MEDS ORDERED: PREDNISONE 20 MG TABLET PO ONE (14:32)
--- NOTE | 2019-08-19 14:32 | ER Document Report ---
ED Medical Screen (RME) - General Chief Complaint: Leg Pain Stated Complaint: LEFT LEG PAIN Time Seen by Provider: 08/19/19 14:28 Mode of Arrival: Ambulatory Information source: Patient Notes: 19-year-old female presents to ED for a very large red swollen area to the left upper thigh and buttocks. She states she thought she had an insect bite on Sunday and is gotten progressively worse and larger since then. The one on her left thigh is approximately 8 inches across the other 1 is about 2 inches across. We will treat her with Benadryl Pepcid and prednisone and have her followed up by another provider to ensure that this is decreasing in size. Patient states she has no allergies that she knows of and she does not know what bit her. No signs or symptoms of angioedema I have greeted and performed a rapid initial assessment of this patient. A comprehensive ED assessment and evaluation of the patient, analysis of test results and completion of medical decision making process will be conducted by an additional ED providers. TRAVEL OUTSIDE OF THE [place] IN LAST 30 DAYS: No - Related Data Allergies/Adverse Reactions: No Known Allergies Allergy (Verified 08/19/19 14:28) Past Medical History Neurological Medical History: Reports: Hx Migraine Renal/ Medical History: Denies: Hx Peritoneal Dialysis - Immunizations Immunizations up to date: Yes Physical Exam - Vital signs Vitals: Temp Pulse Resp BP Pulse Ox 98.4 F 85 18 124/71 100 08/19/19 14:07 08/19/19 14:07 08/19/19 14:07 08/19/19 14:07 08/19/19 14:07 Course - Vital Signs Vital signs: Temp Pulse Resp BP Pulse Ox 98.4 F 85 18 124/71 100 08/19/19 14:07 08/19/19 14:07 08/19/19 14:07 08/19/19 14:07 08/19/19 14:07
[2019-08-19] MEDS ORDERED: FAMOTIDINE 20 MG TABLET PO ONE (14:33)
--- NOTE | 2019-08-19 16:09 | ER Document Report ---
ED General - General Chief Complaint: Rash Stated Complaint: LEFT LEG PAIN Time Seen by Provider: 08/19/19 14:28 Primary Care Provider: [facility] [Provider Group] - Follow up in 3-5 days [facility] [Provider Group] - Follow up in 3-5 days Mode of Arrival: Ambulatory TRAVEL OUTSIDE OF THE [place] IN LAST 30 DAYS: No - HPI Notes: 19-year-old female to the emergency department with complaints of a large area of redness, itching and pain that began on Sunday after she thinks she was bitten by an insect. She states she was staying with a friend but did not see any bugs in the friends house. She states it is very itchy but it also hurts. She is gotten concerned because the redness seemed to have spread. She denies any shortness of breath, lip swelling, hives anywhere else on the body. She denies any fevers or chills. She denies any drainage from the site. - Related Data Allergies/Adverse Reactions: No Known Allergies Allergy (Verified 08/19/19 14:28) Past Medical History - General Information source: Patient - Social History Smoking Status: Never Smoker Frequency of alcohol use: None Drug Abuse: None Family History: Reviewed & Not Pertinent Patient has suicidal ideation: No Patient has homicidal ideation: No Neurological Medical History: Reports: Hx Migraine Renal/ Medical History: Denies: Hx Peritoneal Dialysis - Immunizations Immunizations up to date: Yes Review of Systems - Review of Systems Constitutional: denies: Chills, Fever EENT: No symptoms reported Cardiovascular: denies: Chest pain, Palpitations, Heart racing, Dyspnea, Syncope, Dizziness, Lightheaded Respiratory: denies: Cough, Short of breath Gastrointestinal: denies: Abdominal pain, Diarrhea, Nausea, Vomiting Genitourinary: No symptoms reported Skin: See HPI, Rash Neurological/Psychological: No symptoms reported -: Yes All other systems reviewed and negative Physical Exam - Vital signs Vitals: Temp Pulse Resp BP Pulse Ox 98.4 F 85 18 124/71 100 08/19/19 14:07 08/19/19 14:07 08/19/19 14:07 08/19/19 14:07 08/19/19 14:07 Interpretation: Normal - General General appearance: Appears well, Alert In distress: None - HEENT Head: Normocephalic, Atraumatic Eyes: Normal Pupils: PERRL - Respiratory Respiratory status: No respiratory distress Chest status: Nontender. No: Accessory muscle use Breath sounds: Normal. No: Rales, Rhonchi, Wheezing Chest palpation: Normal - Cardiovascular Rhythm: Regular Heart sounds: Normal auscultation Murmur: No - Abdominal Inspection: Morbidly Obese Distension: No distension Bowel sounds: Normal Tenderness: Nontender Organomegaly: No organomegaly - Back Back: CVA tenderness - Extremities General upper extremity: Normal inspection, Nontender, Normal color, Normal ROM, Normal temperature General lower extremity: Normal ROM, Normal weight bearing. No: Karan's sign - Neurological Neuro grossly intact: Yes Cognition: Normal Orientation: AAOx4 [place] Coma Scale Eye Opening: Spontaneous [place] Coma Scale Verbal: Oriented [place] Coma Scale Motor: Obeys Commands [place] Coma Scale Total: 15 Speech: Normal Motor strength normal: LUE, RUE, LLE, RLE Sensory: Normal - Psychological Associated symptoms: Normal affect, Normal mood - Skin Skin Temperature: Warm Skin Moisture: Dry Skin Color: Normal Skin irregularity: Erythema - To the left lateral upper leg there are 2 areas of erythema and edema. There is mild warmth. The largest area is about 8 cm in diameter and the other is approximately 3 and half centimeters. There is no fluctuance. They are mildly tender to palpation. There is no drainage. There is no streaking erythema Course - Re-evaluation Re-evalutation: 08/19/19 Impression: Suspect that this is an insect sting with a local reaction. However given the pain will go ahead and cover for cellulitic process as well. Patient is not febrile. She has no streaking erythema. There is no fluctuance. There is nothing to drain. We will discharge the patient home with doxycycline as well as prednisone, Benadryl, Pepcid. patient agrees with the plan. - Vital Signs Vital signs: Temp Pulse Resp BP Pulse Ox 97.8 F 72 16 114/73 100 08/19/19 17:17 08/19/19 17:17 08/19/19 17:17 08/19/19 17:17 08/19/19 17:17 Discharge - Discharge Clinical Impression: Local reaction to insect sting Qualifiers: Encounter type: initial encounter Injury intent: accidental or unintentional Qualified Code(s): T63.481A - Toxic effect of venom of other arthropod, accidental (unintentional), initial encounter Condition: Stable Disposition: HOME, SELF-CARE Instructions: Cellulitis ([facility]), Swollen Insect Bite or Sting ([facility]) Additional Instructions: Return immediately if worsening pain, increasing redness, fevers, drainage. Take antibiotics and steroids until completion. Continue use of Benadryl and Pepcid. Wound check in 2 days Prescriptions: Prednisone [Deltasone 10 mg Tablet] 10 mg PO ASDIR PRN #21 tablet PRN Reason: Doxycycline Hyclate 100 mg PO BID #20 tablet. Famotidine [Pepcid 20 mg Tablet] 20 mg PO BID #12 tablet Forms: Return to Work Referrals: [facility] [Provider Group] - Follow up in 3-5 days [facility] [Provider Group] - Follow up in 3-5 days
[2019-08-19] MEDS ORDERED: DOXYCYCLINE HYCLATE 100 MG TABLET PO ONE (16:17)
[2019-08-19 17:19] VITALS: BP 114/73
== END 2019-08-19 17:20 | disposition home or self-care (01) ==
LOC: ER 12:42
DX: T63.481A Toxic effect of venom of other arthropod, accidental (unintentional), initial encounter (principal); R21 Rash and other nonspecific skin eruption; M79.605 Pain in left leg; Y92.009 Unspecified place in unspecified non-institutional (private) residence as the place of occurrence of the external cause
CPT/HCPCS: 99282; J7512

== ENCOUNTER 2019-09-21 11:50 | Emergency (ER) | payer SELFPAY ==
[2019-09-21 12:04] VITALS: BP 133/56
[2019-09-21] MEDS ORDERED: IBUPROFEN 800 MG TABLET PO ONE (12:13)
--- NOTE | 2019-09-21 12:16 | ER Document Report ---
HPI - HPI Time Seen by Provider: 09/21/19 12:09 Pain Level: Denies Context: Patient is a 19-year-old female with a history of migraines who presents emergency department with a chief complaint of right arm pain. Patient reports last night around 9 PM and she was standing on top of a desk when she attempted to jump onto the bed. Patient reports she did not quite make it onto the bed and hit the right upper arm on the edge of the bed. She reports she did hit it on the edge of the mattress and not the bed frame. Patient reports last night she did take Aleve. Patient denies right shoulder or right lower arm pain. Patient denies deformity. Patient reports pain is worse with movement. - CONSTITUTIONAL Constitutional: DENIES: Fever, Chills - REPRODUCTIVE LMP: now Reproductive: DENIES: : Past Medical History - General Information source: Patient - Social History Smoking Status: Never Smoker Chew tobacco use (# tins/day): No Frequency of alcohol use: None Drug Abuse: None Lives with: Family Family History: Reviewed & Not Pertinent Patient has suicidal ideation: No Patient has homicidal ideation: No - Past Medical History Cardiac Medical History: Reports: None Pulmonary Medical History: Reports: None EENT Medical History: Reports: None Neurological Medical History: Reports: Hx Migraine Endocrine Medical History: Reports: None Renal/ Medical History: Reports: None. Denies: Hx Peritoneal Dialysis Malignancy Medical History: Reports: None GI Medical History: Reports: None Musculoskeletal Medical History: Reports None Skin Medical History: Reports None Psychiatric Medical History: Reports: None Traumatic Medical History: Reports: None Infectious Medical History: Reports: None Surgical Hx: Negative - Immunizations Immunizations up to date: Yes Vertical Provider Document - CONSTITUTIONAL Agree With Documented VS: Yes Exam Limitations: No Limitations General Appearance: No Apparent Distress - INFECTION CONTROL TRAVEL OUTSIDE OF THE [place] IN LAST 30 DAYS: No - HEENT HEENT: Atraumatic, Normal ENT Exam, Normocephalic, PERRLA - NECK Neck: Normal Inspection - RESPIRATORY Respiratory: Breath Sounds Normal, No Respiratory Distress - CARDIOVASCULAR Cardiovascular: Regular Rate, Regular Rhythm - GI/ABDOMEN Gastrointestinal: Abdomen Soft, Abdomen Non-Tender, Normal Bowel Sounds - MUSCULOSKELETAL/EXTREMETIES Musculoskeletal/Extremeties: FROM Notes: Patient has full range of motion to the right shoulder, right elbow, right wrist. Patient has diffuse tenderness to the right humerus. There is no obvious deformity. There is no ecchymosis, edema or erythema noted to the right upper arm. Patient has a strong palpable +2 brachial and radial pulse. Patient has bilateral equal sample tester grinder in the upper extremities. - NEURO Level of Consciousness: Awake, Alert, Appropriate - DERM Integumentary: Warm, Dry, No Rash Course - Vital Signs Vital signs: Temp Pulse Resp BP Pulse Ox 98.4 F 94 18 133/56 H 99 09/21/19 12:03 09/21/19 12:03 09/21/19 12:03 09/21/19 12:03 09/21/19 12:03 - Diagnostic Test Radiology reviewed: Reports reviewed Radiology results interpreted by me: 09/21/19 12:45 Humerus X-Ray 09/21/19 12:13 IMPRESSION: NEGATIVE STUDY OF THE RIGHT HUMERUS. NO RADIOGRAPHIC EVIDENCE OF ACUTE INJURY. Discharge - Discharge Clinical Impression: Right upper limb pain Fall Qualifiers: Encounter type: initial encounter Qualified Code(s): W19.XXXA - Unspecified fall, initial encounter Condition: Stable Disposition: HOME, SELF-CARE Additional Instructions: *Today was seen emergency department after a fall. We did obtain an x-ray of your right upper arm which do not reveal any acute deformities such as a fracture dislocation. Please rest, you can ice the area, use Tylenol and ibuprofen. Your symptoms should resolve over the next few days. If you develop any new or worsening symptoms please seek medical attention. Prescriptions: Ibuprofen [Motrin 800 mg Tablet] 800 mg PO Q8H PRN #30 tab PRN Reason: Forms: Return to Work Referrals: CAN [facility]KS PA-C [Primary Care Provider] - Follow up as needed
--- NOTE | 2019-09-21 12:44 | RADIOLOGY REPORT (SQ) ---
EXAM DESCRIPTION: HUMERUS RIGHT COMPLETED DATE/TIME: 09/21/2019 12:30 pm REASON FOR STUDY: Right upper arm pain, fall COMPARISON: None. NUMBER OF VIEWS: Two views. TECHNIQUE: Two radiographic images were acquired of the right humerus to include elbow and shoulder in at least one projection. LIMITATIONS: None. FINDINGS: MINERALIZATION: Normal. BONES: No acute fracture or dislocation. No worrisome bone lesions. SOFT TISSUES: No obvious swelling or foreign body. OTHER: No other significant finding. IMPRESSION: NEGATIVE STUDY OF THE RIGHT HUMERUS. NO RADIOGRAPHIC EVIDENCE OF ACUTE INJURY. TECHNICAL DOCUMENTATION: JOB ID: [id number] 2010 [employer]- All Rights Reserved Reading location - IP/workstation name: [email or web address]
== END 2019-09-21 12:49 | disposition home or self-care (01) ==
LOC: ER 11:50
DX: M79.601 Pain in right arm (principal); W22.03XA Walked into furniture, initial encounter
CPT/HCPCS: 99283

== ENCOUNTER 2020-04-14 13:45 | Emergency (ER) | payer SELFPAY ==
[2020-04-14 15:06] LABS: ABSOLUTE EOSINOPHILS # (AUTO) 0.1 10^3/uL (0.0-0.6); ABSOLUTE LYMPHOCYTES (AUTO) 2.5 10^3/uL (0.5-4.7); ABSOLUTE MONOCYTES (AUTO) 0.5 10^3/uL (0.1-1.4); ABSOLUTE NEUT (AUTO) 4.9 10^3/uL (1.7-8.2); BASOPHILS % (AUTO) 0.3 % (0-2); HEMATOCRIT 37.2 % (36.0-47.0); HEMOGLOBIN 13.1 g/dL (12.0-15.5); LYMPHOCYTES % (AUTO) 30.9 % (13-45); MEAN CORPUSCULAR HEMOGLOBIN 29.7 pg (27.0-33.4); MEAN CORPUSCULAR HGB CONC 35.3 g/dL (32.0-36.0); MEAN CORPUSCULAR VOLUME 84 fl (80-97); MONOCYTES % (AUTO) 6.8 % (3-13); PLATELET COUNT 347 10^3/uL (150-450); RED BLOOD COUNT 4.42 10^6/uL (3.72-5.28); RED CELL DISTRIBUTION WIDTH 14.3 % (11.5-14.0); TOTAL CELLS COUNTED % (AUTO) 100 %; WHITE BLOOD COUNT 8.1 10^3/uL (4.0-10.5)
[2020-04-14 15:09] LABS: APPEARANCE,URINE CLEAR; BILIRUBIN,URINE NEGATIVE (NEGATIVE); COLOR,URINE YELLOW; GLUCOSE, URINE NEGATIVE (NEGATIVE); KETONES,URINE NEGATIVE (NEGATIVE); LEUKOCYTE ESTERASE,URINE NEGATIVE (NEGATIVE); NITRITE,URINE NEGATIVE (NEGATIVE); PROTEIN,URINE NEGATIVE (NEGATIVE); URINE SPECIFIC GRAVITY 1.017
--- NOTE | 2020-04-14 17:16 | ER Document Report ---
HPI - HPI Patient complains to provider of: vaginal bleeding Time Seen by Provider: 04/14/20 15:26 Pain Level: 4 Notes: 19-year-old female to the emergency department with complaints of vaginal bleeding since the end of February. She states that it has been predominantly heavy. 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 She thinks that she is going through approximately 2-3 pads a day. She states she seen clotting. She states that prior to this episode of bleeding she did not have a period for 3 months. She denies sure she could be . She denies any other symptoms today. - CONSTITUTIONAL Constitutional: DENIES: Fever, Chills - EENT EENT: DENIES: Sore Throat, Ear Pain - NEURO Neurology: DENIES: Headache, Weakness - CARDIOVASCULAR Cardiovascular: DENIES: Chest pain - RESPIRATORY Respiratory: DENIES: Trouble Breathing, Coughing - GASTROINTESTINAL Gastrointestinal: DENIES: Abdominal Pain, Nausea - REPRODUCTIVE LMP: 03/19/20 Reproductive: REPORTS: Abnormal bleeding / discharge - DERM Skin Color: Normal Skin Problems: None Past Medical History - General Information source: Patient - Social History Smoking Status: Current Every Day Smoker Chew tobacco use (# tins/day): No Frequency of alcohol use: None Drug Abuse: None Family History: Reviewed & Not Pertinent Patient has homicidal ideation: No Neurological Medical History: Reports: Hx Migraine Renal/ Medical History: Denies: Hx Peritoneal Dialysis - Immunizations Immunizations up to date: Yes Vertical Provider Document - CONSTITUTIONAL Agree With Documented VS: Yes General Appearance: WD/WN - INFECTION CONTROL TRAVEL OUTSIDE OF THE [place] IN LAST 30 DAYS: No - HEENT HEENT: Atraumatic, Normocephalic, PERRLA - NECK Neck: Normal Inspection, Supple - RESPIRATORY Respiratory: Breath Sounds Normal, No Respiratory Distress. negative: Rales, Rhonchi, Wheezing - CARDIOVASCULAR Cardiovascular: Regular Rate, Regular Rhythm, No Murmur - GI/ABDOMEN Gastrointestinal: Abdomen Soft, Abdomen Non-Tender, Abdominal Mass, Normal Bowel Sounds. negative: Abdominal Guarding, Abdominal Rebound - BACK Back: Normal Inspection. negative: CVA Tenderness-Right, CVA Tenderness-Left - MUSCULOSKELETAL/EXTREMETIES Musculoskeletal/Extremeties: MAEW, FROM - NEURO Level of Consciousness: Awake, Alert, Appropriate Motor/Sensory: No Motor Deficit, No Sensory Deficit - DERM Integumentary: Warm, No Rash Course - Re-evaluation Re-evalutation: Impression: Dysfunctional uterine bleeding. Patient has a stable H&H test is negative. Plan for follow-up outpatient with her [employer] for further evaluation. Patient agrees with the plan. - Vital Signs Vital signs: Temp Pulse Resp BP Pulse Ox 98.1 F 79 19 136/85 H 100 04/14/20 15:28 04/14/20 14:04 04/14/20 14:04 04/14/20 14:04 04/14/20 14:04 - Laboratory Result Diagrams: 04/14/20 14:40 Laboratory results interpreted by me: 04/14/20 04/14/20 14:40 14:40 RDW 14.3 H Urine Blood LARGE H Urine Urobilinogen 4.0 H 04/16/20 02:50 Laboratory 04/14/20 04/14/20 04/14/20 14:40 14:40 14:40 WBC 8.1 RBC 4.42 Hgb 13.1 Hct 37.2 MCV 84 MCH 29.7 MCHC 35.3 RDW 14.3 H Plt Count 347 Lymph % (Auto) 30.9 [place] % (Auto) 6.8 Eos % (Auto) 1.0 Baso % (Auto) 0.3 Absolute Neuts (auto) 4.9 Absolute Lymphs (auto) 2.5 Absolute Monos (auto) 0.5 Absolute Eos (auto) 0.1 Absolute Basos (auto) 0.0 Seg Neutrophils % 61.0 Urine Color YELLOW Urine Appearance CLEAR Urine pH 7.0 Ur Specific [place] 1.017 Urine Protein NEGATIVE Urine Glucose (UA) NEGATIVE Urine Ketones NEGATIVE Urine Blood LARGE H Urine Nitrite NEGATIVE Urine Bilirubin NEGATIVE Urine Urobilinogen 4.0 H Ur Leukocyte Esterase NEGATIVE Urine WBC (Auto) 1 Urine RBC (Auto) 94 Squamous Epi Cells Auto 1 Urine Mucus (Auto) RARE Urine Ascorbic Acid NEGATIVE Urine HCG, Qual NEGATIVE Bacteria (Wet Prep) Trichomonas (Wet Prep) Vaginal WBC Vaginal RBC Vaginal Yeast Chlamydia DNA (PCR) N.gonorrhoeae DNA (PCR) 04/14/20 04/14/20 17:15 17:15 WBC RBC Hgb Hct MCV MCH MCHC RDW Plt Count Lymph % (Auto) [place] % (Auto) Eos % (Auto) Baso % (Auto) Absolute Neuts (auto) Absolute Lymphs (auto) Absolute Monos (auto) Absolute Eos (auto) Absolute Basos (auto) Seg Neutrophils % Urine Color Urine Appearance Urine pH Ur Specific Wells Urine Protein Urine Glucose (UA) Urine Ketones Urine Blood Urine Nitrite Urine Bilirubin Urine Urobilinogen Ur Leukocyte Esterase Urine WBC (Auto) Urine RBC (Auto) Squamous Epi Cells Auto Urine Mucus (Auto) Urine Ascorbic Acid Urine HCG, Qual Bacteria (Wet Prep) 3+ BACTERIA SEEN Trichomonas (Wet Prep) NO TRICHOMONAS SEEN Vaginal WBC 1+ WBCS SEEN Vaginal RBC 4+ RBCS SEEN Vaginal Yeast YEAST SEEN Chlamydia DNA (PCR) NOT DETECTED N.gonorrhoeae DNA (PCR) NOT DETECTED Discharge - Discharge Clinical Impression: Dysfunctional uterine bleeding, Pelvic pain Condition: Stable Disposition: HOME, SELF-CARE Instructions: Dysfunctional Uterine Bleeding ([facility]) Additional Instructions: MONITOR YOUR BLEEDING. RETURN IF WORSENING SYMPTOMS LIKE INCREASED BLEEDING, FEVERS, PASSING OUT, CHEST PAIN. CALL [facility] TOMORROW WITHOUT FAIL. Prescriptions: Ferrous Sulfate 325 mg PO DAILY #30 tablet. Naproxen [Naprosyn 375 Mg Tablet] 375 mg PO BID #20 tablet Methocarbamol [Robaxin 500 mg Tablet] 500 mg PO QID PRN #20 tablet PRN Reason: Forms: Return to Work Referrals: RICHMOND WATSON MD [ACTIVE STAFF] - Follow up in 3-5 days (for [facility] follow up)
[2020-04-14 17:35] LABS: BACTERIA (WET MOUNT) 3+ BACTERIA SEEN; RBCS (WET MOUNT) 4+ RBCS SEEN; T.VAGINALIS (WET MOUNT) NO TRICHOMONAS SEEN; WBCS (WET MOUNT) 1+ WBCS SEEN; YEAST (WET MOUNT) YEAST SEEN
[2020-04-14 17:37] VITALS: BP 122/83
[2020-04-14 19:06] LABS: CHLAM PCR NOT DETECTED (NOT DETECT)
== END 2020-04-14 17:37 | disposition home or self-care (01) ==
LOC: ER 13:45
DX: N93.8 Other specified abnormal uterine and vaginal bleeding (principal); R10.2 Pelvic and perineal pain; F17.200 Nicotine dependence, unspecified, uncomplicated
CPT/HCPCS: 36415; 81001; 81025; 85025; 87210; 87491; 87591; 99282